=== PATIENT | female | born 1995 | race Caucasian/White ===

== ENCOUNTER → 2017-06-18 | Outpatient (CLI) | payer OTHER | LOC: M RAD 12:29 | DX: N83.201 Unspecified ovarian cyst, right side (principal) | CPT/HCPCS: 76856 ==

== ENCOUNTER → 2017-09-19 | Outpatient (REF) | payer OTHER | LOC: M LAB REF 18:37 | DX: J02.9 Acute pharyngitis, unspecified (principal) ==

== ENCOUNTER 2017-10-17 11:38 | Emergency (ER) | payer MEDICAID, OTHER ==
[2017-10-17] MEDS ORDERED: NS 1,000 ML IV ×2 (12:30)
[2017-10-17] MEDS: MORPHINE 4 MG/ML 1ML VIAL/SYRINGE (J2270) IV ×2 (12:54)
[2017-10-17] MEDS ORDERED: ISOVUE-370 76% 100ML VIAL (Q9967) As Ordered ×2 (13:16)
[2017-10-17 17:49] LABS: ALBUMIN 3.7 GM/DL (3.2-5.2); ALBUMIN/GLOBULIN RATIO 1.12 (1.00-1.93); ALKALINE PHOSPHATASE 88 U/L (45-117); ALT/SGPT 14 U/L (12-78); AMYLASE 31 U/L (25-115); ANION GAP 6 MEQ/L (8-16); AST/SGOT 15 U/L (7-37); BILIRUBIN,DIRECT 0.2 MG/DL (0.0-0.2); BILIRUBIN,TOTAL 0.6 MG/DL (0.2-1.0); BLOOD UREA NITROGEN 12 MG/DL (7-18); CALCIUM LEVEL 8.6 MG/DL (8.5-10.1); CARBON DIOXIDE LEVEL 24 MEQ/L (21-32); CHLORIDE LEVEL 110 MEQ/L (98-107); CREATININE FOR GFR 0.89 MG/DL (0.55-1.30); GLUCOSE, FASTING 86 MG/DL (70-100); LIPASE 53 U/L (73-393); POTASSIUM SERUM 3.9 MEQ/L (3.5-5.1); SODIUM LEVEL 140 MEQ/L (136-145)
[2017-10-18 03:48] LABS: BASO % 0.5 % (0.0-1.0); EOS # 0.2 10^3/uL (0.0-0.50); EOS % 2.6 % (0.0-3.0); HEMATOCRIT 38.9 % (36.0-47.0); HEMOGLOBIN 13.3 g/dl (12.0-15.5); IMMATURE GRANULOCYTE % 0.3 % (0-3.0); LYMPH # 1.2 10^3/uL (1.5-6.5); LYMPH % 19.4 % (24.0-44.0); MEAN CORPUSCULAR HEMOGLOBIN 32.4 pg (27.0-33.0); MEAN CORPUSCULAR HGB CONC 34.2 g/dl (32.0-36.5); MEAN CORPUSCULAR VOLUME 94.6 fl (80.0-96.0); MONO # 0.5 10^3/uL (0.0-0.8); MONO % 8.6 % (0.0-5.0); NEUTROPHILS # 4.2 10^3/uL (1.8-7.7); NEUTROPHILS % 68.6 % (36.0-66.0); PLATELET COUNT, AUTOMATED 270 10^3/uL (150-450); RED BLOOD COUNT 4.11 10^6/uL (4.00-5.40); RED CELL DISTRIBUTION WIDTH 12.1 % (11.5-14.5); WHITE BLOOD COUNT 6.1 10^3/uL (4.0-10.0)
== END 2017-10-17 16:47 | disposition home or self-care (01) ==
LOC: M ED 11:38
DX: S80.01XA Contusion of right knee, initial encounter (principal); S80.02XA Contusion of left knee, initial encounter; T14.8XXA Other injury of unspecified body region, initial encounter; V49.50XA Passenger injured in collision with unspecified motor vehicles in traffic accident, initial encounter; Y92.410 Unspecified street and highway as the place of occurrence of the external cause
CPT/HCPCS: J2270

== ENCOUNTER 2019-01-27 14:49 | Emergency (ER) | payer OTHER ==
[~2019-01-27] VITALS: Ht 172.7 cm; Wt 59.4 kg
[~2019-01-27 14:49] MED LIST: PREVTAB2 PO
[2019-01-27] MEDS ORDERED: ESCI10TA2 (14:55)
[2019-01-27] MEDS ORDERED: ACETAMINOPHEN 325 MG TAB PO ONE (16:30)
--- NOTE | 2019-01-27 17:49 | REP ---
Chest x-ray: Two views. History: Cough. Rule out pneumonia. Bronchitis. . Comparison study: No comparison chest x-ray. . Findings: The lungs are well inflated and free of infiltrate. The pleural angles are sharp. The heart size is normal. Pulmonary vasculature is not increased. No significant bony abnormality is seen. Nipple jewelry is noted incidentally. Impression: Negative chest x-ray. Electronically Signed by Jose Menon MD 01/27/2019 05:40 P
[2019-01-27 18:05] VITALS: BP 109/70
== END 2019-01-27 18:11 | disposition home or self-care (01) ==
LOC: M ED 14:49
DX: J06.9 Acute upper respiratory infection, unspecified (principal); J04.0 Acute laryngitis; R51 Headache; F17.210 Nicotine dependence, cigarettes, uncomplicated; F41.9 Anxiety disorder, unspecified; F32.9 Major depressive disorder, single episode, unspecified; Z79.899 Other long term (current) drug therapy

== ENCOUNTER 2019-07-28 08:17 | Emergency (ER) | payer OTHER ==
[~2019-07-28] VITALS: Ht 172.7 cm; Wt 66.5 kg
[~2019-07-28 08:17] MED LIST changes: +ESCI10TA2
[2019-07-28] MEDS ORDERED: IBUP-1114 PO (08:23)
[2019-07-28] MEDS ORDERED: NS 1,000 ML IV ONE (08:45)
[2019-07-28 09:02] LABS: BASO % 0.3 % (0.0-1.0); EOS # 0.1 10^3/uL (0.0-0.5); EOS % 1.5 % (0.0-3.0); HEMATOCRIT 38.5 % (36.0-47.0); HEMOGLOBIN 13.3 g/dl (12.0-15.5); LYMPH # 1.1 10^3/uL (1.5-5.0); LYMPH % 12.9 % (24.0-44.0); MEAN CORPUSCULAR HEMOGLOBIN 33.1 pg (27.0-33.0); MEAN CORPUSCULAR HGB CONC 34.5 g/dl (32.0-36.5); MEAN CORPUSCULAR VOLUME 95.8 fl (80.0-96.0); MONO # 0.4 10^3/uL (0.0-0.8); MONO % 4.6 % (0.0-5.0); NEUTROPHILS % 80.4 % (36.0-66.0); PLATELET COUNT, AUTOMATED 247 10^3/uL (150-450); RED BLOOD COUNT 4.02 10^6/uL (4.00-5.40); WHITE BLOOD COUNT 8.7 10^3/uL (4.0-10.0)
[2019-07-28 09:30] LABS: BILIRUBIN,DIRECT 0.2 MG/DL (0.0-0.2); BILIRUBIN,TOTAL 0.8 MG/DL (0.2-1.0); TOTAL PROTEIN 7.2 GM/DL (6.4-8.2)
[2019-07-28] MEDS ORDERED: ONDANSETRON 4MG/2ML VIAL (J2405) IV ONE (09:30)
--- NOTE | 2019-07-28 09:50 | REP ---
CT of the abdomen pelvis without IV and oral contrast for left flank pain and hematuria: Comparison is 10/17/2017 with IV contrast. There is mild left hydronephrosis/hydroureter as an interval change. No perinephric stranding. There is a 3 ml calculus in the pelvis on the left, not present previously, possibly a distal left ureteral calculus on image 123. There is a second calculus in the pelvis on the left adjacent to the left acetabulum on image 125, similar to the prior study, likely phleboliths. There is a nonobstructive 3 mm left renal calculus and a nonobstructive 3 mm right renal calculus. The visualized lung martin are unremarkable except for curvilinear parenchymal scarring in the left lower lobe, unchanged. The unenhanced hepatic parenchyma, gallbladder, pancreas, spleen, adrenals, abdominal aorta, bowel and mesentery are unremarkable. There is no ascites. Pelvis: The uterus and adnexa are unremarkable. There is no free fluid. The pelvic bowel loops are unremarkable. Impression: Mild left hydronephrosis/hydroureter. Probable 3 ml calculus in the distal left ureter. There are nonobstructive 3 mm calculi in each kidney. Consider a CT urogram with IV contrast for more assurance that the pelvic calculus is in the distal left ureter. Electronically Signed by Guanako Elder MD 07/28/2019 09:42 A
[2019-07-28] MEDS ORDERED: KETOROLAC 30 MG/ML VIAL (J1885) IV ONE (10:00)
[2019-07-28] MEDS ORDERED: FLOM0.4C39 PO (10:16)
[2019-07-28] MEDS ORDERED: ONDA4TAB6 PO (10:16)
[2019-07-28] MEDS ORDERED: NORC1TAB7 PO (10:20)
[2019-07-28 10:30] VITALS: BP 126/58
== END 2019-07-28 10:31 | disposition home or self-care (01) ==
LOC: M ED 08:17
DX: N13.39 Other hydronephrosis (principal); N13.4 Hydroureter; N20.2 Calculus of kidney with calculus of ureter; R11.2 Nausea with vomiting, unspecified; R19.7 Diarrhea, unspecified; F41.9 Anxiety disorder, unspecified; F33.9 Major depressive disorder, recurrent, unspecified; F17.200 Nicotine dependence, unspecified, uncomplicated; Z79.899 Other long term (current) drug therapy
CPT/HCPCS: 74176; 80047; 80076; 81001; 83690; 84702; 85025; 96361; 96374; 96375; 99284; J1885; J2405

== ENCOUNTER 2019-08-01 10:00 | Day surgery (SDC) | payer OTHER ==
[~2019-08-01] VITALS: Ht 172.7 cm; Wt 69.0 kg
[~2019-08-01 10:00] MED LIST changes: +FLOM0.4C39 PO; +IBUP-1114 PO; +NORC1TAB7 PO; +ONDA4TAB6 PO
[2019-08-01] MEDS ORDERED: NS 1,000 ML IV ONE (10:15)
[2019-08-01] MEDS ORDERED: KETOROLAC 30 MG/ML VIAL (J1885) IV ONE (10:30)
[2019-08-01] MEDS ORDERED: ONDANSETRON 4MG/2ML VIAL (J2405) IV ONE (10:30)
[2019-08-01 10:51] LABS: BASO % 0.4 % (0.0-1.0); EOS # 0.2 10^3/uL (0.0-0.5); EOS % 2.2 % (0.0-3.0); HEMATOCRIT 40.2 % (36.0-47.0); HEMOGLOBIN 13.8 g/dl (12.0-15.5); LYMPH # 1.3 10^3/uL (1.5-5.0); LYMPH % 17.4 % (24.0-44.0); MEAN CORPUSCULAR HEMOGLOBIN 32.9 pg (27.0-33.0); MEAN CORPUSCULAR HGB CONC 34.3 g/dl (32.0-36.5); MEAN CORPUSCULAR VOLUME 95.9 fl (80.0-96.0); MONO # 0.3 10^3/uL (0.0-0.8); MONO % 4.7 % (0.0-5.0); NEUTROPHILS # 5.4 10^3/uL (1.5-8.5); NEUTROPHILS % 74.9 % (36.0-66.0); PLATELET COUNT, AUTOMATED 260 10^3/uL (150-450); RED BLOOD COUNT 4.19 10^6/uL (4.00-5.40); WHITE BLOOD COUNT 7.2 10^3/uL (4.0-10.0)
--- NOTE | 2019-08-01 11:05 | REP ---
Supine abdomen single AP view: Comparison is the abdomen/pelvis CT dated 07/28/2019. On the comparison study there was a 3 mm right renal calculus, 3 mm left renal calculus and eighth 3 mm calcification in the pelvis on the left. None of these calcifications are identified on the current plain film study. The bowel gas pattern is normal. The skeletal structures are unremarkable. Impression: No calcifications are identified. Electronically Signed by Guanako Elder MD 08/01/2019 10:57 A
--- NOTE | 2019-08-01 11:14 | REP ---
URINARY TRACT SONOGRAPHY: HISTORY: Left renal colic. History of kidney stones. Comparison CT study, July 28, 2019. SONOGRAPHIC FINDINGS: Scanning at the level of the urinary bladder shows that it is empty. Incidental note is made of innumerable echogenic foci in the gallbladder consistent with cholelithiasis. The gallbladder is not dilated. No pericholecystic fluid is seen. Renal cortical echogenicity pattern is normal generally. There is a hyperechoic area in the lower to mid pole region of the right kidney involving the renal cortex without evidence of mass. Question pyelonephritis changes. There is no evidence of hydronephrosis on the right. There is minimal separation of central renal sinus echoes on the left, improved from the prior CT study, July 28, 2019. There is a 3 mm echogenic focus in the left mid kidney consistent with a calculus. Left renal dimensions are 13.8 x 5.6 x 6.2 cm. The right kidney measures 12.3 x 4.4 x 3.7 cm. IMPRESSION: Improved hydronephrosis on the left. 3 mm echogenic focus in the left mid kidney may be a small intrarenal calculus. There is a region of the right kidney mid to lower pole with hyperechoic renal parenchyma, question pyelonephritis changes. Etiology uncertain. No abnormal fluid collection. No hydronephrosis noted on the right. Cholelithiasis. Electronically Signed by Jose Menon MD 08/01/2019 03:49 P
[2019-08-01 11:17] LABS: BLOOD UREA NITROGEN 9 MG/DL (7-18); CALCIUM LEVEL 9.4 MG/DL (8.5-10.1); CARBON DIOXIDE LEVEL 30 MEQ/L (21-32); CHLORIDE LEVEL 107 MEQ/L (98-107); CREATININE FOR GFR 0.73 MG/DL (0.55-1.30); GLOMERULAR FILTRATION RATE > 60.0 (>60); GLUCOSE, FASTING 93 MG/DL (70-100); POTASSIUM SERUM 3.5 MEQ/L (3.5-5.1); SODIUM LEVEL 140 MEQ/L (136-145)
[2019-08-01] MEDS ORDERED: MORPHINE 4 MG/ML 1ML VIAL/SYRINGE (J2270) IV ONE (11:45)
[2019-08-01] MEDS ORDERED: FLOM0.4C39 PO (12:55)
[2019-08-01] MEDS ORDERED: NORC1TAB7 PO (12:55)
[2019-08-01] MEDS ORDERED: ONDA4TAB6 PO (12:55)
[2019-08-01] MEDS ORDERED: propofoL 200 MG/20 ML VIAL As Ordered ONE (14:35)
[2019-08-01] MEDS ORDERED: fentaNYL 100 MCG/2 ML INJECTION (J3010) As Ordered ONE (14:36)
[2019-08-01] MEDS ORDERED: MIDAZOLAM INJ 2 MG/2 ML VIAL (J2250) As Ordered ONE (14:36)
[2019-08-01] MEDS ORDERED: LIDOCAINE 2% INJ 100 MG/5 ML SDV (FOR ANES.) As Ordered ONE (14:36)
[2019-08-01] MEDS ORDERED: ceFAZolin 2 GM/D5W 50 ML IV BAG (J0690 PER 500MG) As Ordered ONE (14:42)
[2019-08-01] MEDS ORDERED: CONRAY-60 60% 50ML VIAL (Q9961) As Ordered ONE (14:53)
[2019-08-01] MEDS ORDERED: dexameTHASONE 4 MG/ML 1ML VIAL (J1100) As Ordered ONE (15:15)
[2019-08-01] MEDS ORDERED: ONDANSETRON 4MG/2ML VIAL (J2405) As Ordered ONE (15:15)
[2019-08-01] MEDS ORDERED: KETOROLAC 60 MG/2 ML VIAL (J1885) As Ordered ONE (15:15)
[2019-08-01] MEDS ORDERED: ePHEDrine SULFATE 25 MG/5 ML(5MG/ML) SYRINGE As Ordered ONE (15:26)
[2019-08-01] MEDS ORDERED: MEPERIDINE INJ 25 MG/ML VIAL (J2175) As Ordered ONE (16:01)
--- NOTE | 2019-08-01 16:09 | REP ---
Retrograde pyelogram: Single view. History: Left ureteroscopy with laser lithotripsy stent placement. 0.05 seconds of fluoroscopy is reported. A single last image hold fluoroscopically obtained spot radiograph of the abdomen documents left ureteral stent placement. Electronically Signed by Jose Menon MD 08/01/2019 03:59 P
[2019-08-01] MEDS ORDERED: oxyCODONE 5MG TAB PO PRN (16:15)
[2019-08-01] MEDS ORDERED: KETOROLAC 30 MG/ML VIAL (J1885) IV PRN (16:15)
[2019-08-01] MEDS ORDERED: LR 1,000 ML IV SCH (16:15)
[2019-08-01] MEDS ORDERED: HYDROMORPHONE HCL 0.5 MG/ 0.5 ML SYRINGE (J1170 PER 1) IV PRN (16:15)
[2019-08-01] MEDS ORDERED: fentaNYL 100 MCG/2 ML INJECTION (J3010) IV PRN (16:15)
[2019-08-01] MEDS: MEPERIDINE INJ 25 MG/ML VIAL (J2175) IV PRN ×2 (16:23→16:30)
[2019-08-01] MEDS: ONDANSETRON 4MG/2ML VIAL (J2405) IV PRN (16:30)
[2019-08-01 17:00] VITALS: BP 120/83
--- NOTE | 2019-08-02 08:42 | CR ---
DATE OF CONSULTATION: 08/01/2019 REASON FOR CONSULTATION: Obstructing left ureteral stone. HISTORY OF PRESENT ILLNESS: The patient is a 24-year-old female who comes into the emergency room for the second time this week with severe left lower quadrant pain and pressure. A CT scan had been done on 07/28/2019 which showed a 3 mm distal left ureteral stone with associated left hydroureteronephrosis. She also had a 3 mm stone in each kidney. She did have a history of needing a lithotripsy in the past. She comes back in today with continued pain. She has had nausea, vomiting, and chills on and off. She requested the stone be removed. The patient has passed at least six stones and required laser lithotripsy about 5 years ago at [facility]. She denies any gross hematuria or problems with recurrent urinary tract infections. She normally does not have any irritative or obstructive voiding symptoms except for when she has the stone where she feels mostly pressure and a feeling like she needs to void constantly. PAST MEDICAL HISTORY: Denies. PAST SURGICAL HISTORY: Laser lithotripsy and stent placement 5 years ago. MEDICATIONS: Flomax was started several days ago for the stone but otherwise she is not on any medications. ALLERGIES: No known drug allergies. FAMILY HISTORY: Noncontributory. REVIEW OF SYSTEMS: 12 system review was done and was also essentially negative. PHYSICAL EXAMINATION: This is a well-developed, well-nourished female in no apparent respiratory distress, alert and oriented times three. Her blood pressure was 129/78. Her pulse is 100 and her respiratory rate is 16. Her head was normocephalic, atraumatic. Her eyes were pupils equal, round, and reactive to light and accommodation. Neck was supple. Her lungs were clear to auscultation and percussion and her heart had a regular rate and rhythm. She did have some left CVA tenderness. Her abdomen and also had some left lower quadrant tenderness. Her extremities showed no cyanosis, clubbing or edema. LABORATORY DATA White blood count was 7.2. Hemoglobin and hematocrit 13.8 and 40.2. Her creatinine was 0.73 and a calcium level of 9.4. A microscopic urinalysis showed 4 white blood cells and 1 red blood cell and the last urinalysis did show too numerous to count red blood cells and 9 white blood cells. There has been no recent urine culture sent. CT scan of the abdomen and pelvis was done 07/28/2019 which showed a 3 mm distal left ureteral stone and at least one 3 mm stone in each kidney. She had a renal ultrasound done in the emergency room today and this did still show hydronephrosis, although it was improved from previously. DISCUSSION: I discussed these findings at length with the patient and her mother in the hospital today. The patient is extremely uncomfortable and has already waited 5 days and would like to have the stone removed. We discussed exactly how the procedure is done and what to expect both pre and post procedurally. We discussed the major risks of the procedure, which included but was not limited to the rest of general anesthesia, reactions to medication, bleeding, infection, ureteral injury, and inability to remove the stone. She had a stent replaced last time and removed the stent by that and she did want this done again. She did not find the string bothersome. Informed consent was obtained. IMPRESSION: 1. 3 mm distal left ureteral stone but with a second emergency room visit and the patient has not passed the stone and 5 days and would like to proceed with surgical management. 2. History of bilateral nephrolithiasis, still with at least one 3 mm stone in each kidney and the patient has passed at least six stones in the past. PLAN: Bring the patient to the operating room as soon as possible for cystoscopy, left ureteroscopy, laser lithotripsy and/or stone basketing and left ureteral stent placement. The patient will require further workup in the future for stones.
--- NOTE | 2019-08-04 10:48 | RO ---
DATE OF PROCEDURE: 08/01/2019 PREOPERATIVE DIAGNOSIS: 3 mm distal left ureteral stone. POSTOPERATIVE DIAGNOSIS: 3 mm distal left ureteral stone. PROCEDURE: Cystoscopy, left ureteroscopy, left stone basketing and left ureteral stent placement. SURGEON: Dr. Silvia Ac ANESTHESIA: General. MEDICATIONS: Ancef 2 grams preoperatively. DRAINS: 6-Bulgarian universal double-J ureteral stent. SPECIMENS: Stone for analysis. HISTORY OF PRESENT ILLNESS: The patient is a 24-year-old female with a 5-day history of severe left lower quadrant pain, nausea, vomiting, and chills. A CT scan done in the emergency room (ER) on 07/28/2019 showed a 3 mm distal left ureteral stone and two nonobstructing stones in the kidneys. She has required laser lithotripsy for a stone in the past and has passed at least six other stones. At this point, she was requesting surgical management since she was still in very significant pain for 5 days. After discussing all different options, alternatives, risks, and benefits it was decided to bring her to the operating room. Informed consent was obtained in both verbal and written form. PROCEDURE: The patient was brought into the operating room. Sequential compression devices and thromboembolic deterrent stockings (TEDS) were in place. General anesthesia was induced. She was placed in the lithotomy position and prepped and draped in the usual fashion. Next a 21-Bulgarian cystoscope was inserted. The urethra was open without any evidence of lesions or strictures. Upon entering the bladder both ureteral orifices were seen. There was no evidence of stones, erythematous patches, lesions or other significant abnormalities. At this point a wire was placed into the left ureteral orifice up to the kidney and this was left as a safety wire. A second wire was then placed and a rigid ureteroscope was passed over this. There were two distal stones seen and these were both grabbed with a stone basket and removed. I then did ureteroscopy up into the kidney and the rest of the ureter looked clear and normal. At this point a 6-Bulgarian universal stent was placed and there was an excellent curl seen by fluoroscopy up in the kidney and down in the bladder and the string was brought out and taped to her inner thigh. She had had a dangler in the past and requested that this time also. The patient tolerated the procedure well and was returned to the recovery room in stable condition. She will be scheduled in our office in 1 week to have the stent removed and at that point stone analysis will be checked and she should have a 24 hour urine in the future.
== END 2019-08-01 17:10 | disposition home or self-care (01) ==
LOC: M ED 10:00 → M SDC 13:03 → ENRESERVDT 13:58 → ENRESERVTM 13:58 → M SDC 17:10
PROVIDERS: ATTEND Specialist
DX: N20.1 Calculus of ureter (principal); N20.0 Calculus of kidney; R11.10 Vomiting, unspecified; Z87.442 Personal history of urinary calculi
CPT/HCPCS: 52332; 74018; 74420; 76775; 80048; 81001; 82365; 84702; 85025; 88300; 96361; 96374; 96375; 99284; C1769; C2617; J0690; J1100; J1885; J2175; J2250; J2270; J2405; J3010

== ENCOUNTER → 2019-10-23 | Outpatient (REF) | payer OTHER ==
[2019-10-23 15:46] LABS: HEMATOCRIT 38.1 % (36.0-47.0); HEMOGLOBIN 13.1 g/dl (12.0-15.5); MEAN CORPUSCULAR HEMOGLOBIN 32.7 pg (27.0-33.0); MEAN CORPUSCULAR HGB CONC 34.4 g/dl (32.0-36.5); PLATELET COUNT, AUTOMATED 266 10^3/uL (150-450); RED BLOOD COUNT 4.01 10^6/uL (4.00-5.40); WHITE BLOOD COUNT 11.1 10^3/uL (4.0-10.0)
[2019-10-23 20:41] LABS: CHLAMYDIA DNA AMPLIFICATION NEGATIVE (NEGATIVE); GC DNA AMPLIFICATION NEGATIVE (NEGATIVE)
[2019-10-24 09:50] LABS: HEPATITIS C VIRUS ABY INDEX 0.3 INDEX (<0.8); HIV 1&2 SCREEN CENTAUR NEGATIVE (NEGATIVE)
== END ==
LOC: M PLALAB 13:46
PROVIDERS: ATTEND Advanced Practice Midwife
DX: Z34.01 Encounter for supervision of normal first pregnancy, first trimester (principal)

== ENCOUNTER → 2019-11-20 | Outpatient (REF) | payer OTHER | LOC: M SFHCWAGY 09:06 | PROVIDERS: ATTEND Advanced Practice Midwife | DX: Z12.4 Encounter for screening for malignant neoplasm of cervix (principal) ==

== ENCOUNTER → 2019-12-24 | Outpatient (CLI) | payer OTHER ==
--- NOTE | 2020-02-10 09:23 | REP ---
OBSTETRIC SONOGRAPHY HISTORY: Supervision of . This report was delayed due to a protracted network disruption at this facility. SONOGRAPHIC FINDINGS: Scanning through the gravid uterus demonstrates a single living intrauterine gestation in a transverse, head to the maternal left lie. Placenta is anterior grade 0 without evidence of previa or abruption. Closed cervical length is 3.8 cm viewed transabdominally. heart rate is recorded at 138 beats per minute. Right ventricular outflow tract view could not be achieved today. Left ventricular outflow tract and four chamber heart views were visualized and are felt to be unremarkable. The following additional anatomic structures are seen and are unremarkable: cranium and intracranial anatomy, spine, left-sided stomach, kidneys and urinary bladder, three-vessel cord, abdominal wall cord insertion, upper and lower extremities, face and lips. BIOMETRY CHART: BPD 40 mm 18 weeks 2 days Head Circumference 144 mm 17 weeks 5 days Abdominal Circumference 121 mm 17 weeks 6 days Femur Length 24 mm 17 weeks 4 days Humeral Length 24 mm 17 weeks 4 days Cerebellum Diameter 16 mm 17 weeks 6 days Estimated Weight 206 g 21st percentile IMPRESSION: Viable single intrauterine gestation at 17 weeks 6 days by todays composite criteria. Estimated date of delivery (LAN) 05/25/2020. anatomic survey is felt be complete except for right ventricular outflow tract view, which was less than optimally seen. MTDD
== END ==
LOC: M WHC 17:20
PROVIDERS: ATTEND Advanced Practice Midwife
DX: Z34.82 Encounter for supervision of other normal pregnancy, second trimester (principal); Z3A.17 17 weeks gestation of pregnancy

== ENCOUNTER → 2020-01-27 | Outpatient (CLI) | payer OTHER ==
--- NOTE | 2020-02-17 07:06 | REP ---
FOLLOW-UP OBSTETRICAL ULTRASOUND COMPARISON: 12/24/2019. CLINICAL: Follow-up anatomical assessment. TECHNIQUE: Transabdominal obstetrical ultrasound with color Doppler evaluation. FINDINGS: Ultrasound examination demonstrates a single live intrauterine in transverse lie with head to maternal right. Placenta noted anteriorly and grade 0 without placenta previa or abruption. Amniotic fluid volume is normal. Cervix measures 3.6 cm in length and appears closed. heart rate 144 beats per minute. Gestational age by current measurements 23 weeks 0 days. Estimated weight 546 grams (38th percentile). Anatomical assessment demonstrates normal four chamber heart and cardiac ventricular outflow tracts along with normal stomach, kidneys, and bladder. IMPRESSION: * Single live intrauterine in transverse lie demonstrating appropriate estimated weight and growth. * In conjunction with prior examination, anatomical assessment is complete and normal. MTDD
== END ==
LOC: M WHC 13:52
PROVIDERS: ATTEND Specialist
DX: Z34.82 Encounter for supervision of other normal pregnancy, second trimester (principal)

== ENCOUNTER → 2020-02-11 | Outpatient (REF) | payer OTHER | LOC: M SFHCWAGY 13:44 | PROVIDERS: ATTEND Advanced Practice Midwife | DX: Z34.82 Encounter for supervision of other normal pregnancy, second trimester (principal) ==

== ENCOUNTER → 2020-02-26 | Outpatient (CLI) | payer OTHER ==
[2020-02-26 13:41] LABS: BASO % 0.3 % (0.0-1.0); EOS # 0.2 10^3/uL (0.0-0.5); EOS % 1.5 % (0.0-3.0); HEMATOCRIT 32.3 % (36.0-47.0); HEMOGLOBIN 11.1 g/dl (12.0-15.5); LYMPH # 1.5 10^3/uL (1.5-5.0); LYMPH % 13.2 % (24.0-44.0); MEAN CORPUSCULAR HEMOGLOBIN 33.3 pg (27.0-33.0); MEAN CORPUSCULAR HGB CONC 34.4 g/dl (32.0-36.5); MONO # 0.7 10^3/uL (0.0-0.8); MONO % 5.9 % (0.0-5.0); NEUTROPHILS # 8.8 10^3/uL (1.5-8.5); NEUTROPHILS % 78.6 % (36.0-66.0); PLATELET COUNT, AUTOMATED 232 10^3/uL (150-450); RED BLOOD COUNT 3.33 10^6/uL (4.00-5.40); WHITE BLOOD COUNT 11.2 10^3/uL (4.0-10.0)
== END ==
LOC: M LAB 11:42
PROVIDERS: ATTEND Advanced Practice Midwife
DX: Z34.82 Encounter for supervision of other normal pregnancy, second trimester (principal); Z3A.00 Weeks of gestation of pregnancy not specified

== ENCOUNTER 2020-04-16 18:11 | Outpatient (CLI) | payer OTHER ==
[~2020-04-16] VITALS: Ht 170.2 cm; Wt 71.8 kg
[2020-04-16 18:28] VITALS: BP 115/64
[2020-04-16] MEDS ORDERED: MULTTAB20 PO (18:31)
[2020-04-16] MEDS ORDERED: TUMS750C5 PO (18:31)
[2020-04-16 19:14] LABS: APPEARANCE, URINE HAZY (CLEAR); BACTERIA, URINE AUTO NEGATIVE (NEGATIVE); BILIRUBIN, URINE AUTO NEGATIVE (NEGATIVE); BLOOD, URINE BLOOD NEGATIVE (NEGATIVE); COLOR, URINE YELLOW (YELLOW); GLUCOSE, URINE (UA) AUTO NEGATIVE (NEGATIVE); KETONE, URINE AUTO NEGATIVE (NEGATIVE); LEUKOCYTE ESTERASE, URINE AUTO TRACE (NEGATIVE); NITRITE, URINE AUTO NEGATIVE (NEGATIVE); PROTEIN, URINE AUTO NEGATIVE (NEGATIVE); RBC, URINE AUTO 0 /HPF (0-3); SPECIFIC GRAVITY URINE AUTO 1.006 (1.002-1.035); SQUAMOUS EPITHELIAL CELL UR AU 6 /HPF (0-6); UROBILINOGEN, URINE AUTO 0.2 mg/dL (0.0-2.0); WBC, URINE AUTO 4 /HPF (0-3)
--- NOTE | 2020-04-16 19:41 | IPNPDOC ---
Text Note Date of Service The patient was seen on 04/16/20. NOTE Outpatient 24yo LAN 05/25/2020. Presents @ 34w3d with complaints of sporadic lower abdominal cramping that radiates up the sides of her abdomen. Also states she had light spotting on wipe x 1. Reports fetus is very active. States she had intercourse yesterday. No apparent distress Abdomen soft, gravid appropriate for gestational age. Vertex presentation Cat I tracing, fetus active No UC noted on monitor or palpable Spec exam no active bleeding. Scant white creamy discharge. Neg nitrazine, neg fern. Cervix visually LTC. GBS obtained. SVE presenting part OOP, LTC. UA inconclusive for UTI. Culture sent. Pt reports feeling improved. Reassured Discharged home with instructions. Warnings reviewed. Keep appt next week. VS,Fishbone, I+O VS, Fishbone, I+O Vital Signs Date Time Temp Pulse Resp B/P (MAP) Pulse Ox O2 Delivery O2 Flow Rate FiO2 04/16/20 18:28 98.5 79 16 115/64 (81) Enedelia Montiel CNM Apr 16, 2020 19:41
== END 2020-04-16 19:40 | disposition home or self-care (01) ==
LOC: M LDO 18:11
PROVIDERS: ATTEND Advanced Practice Midwife
DX: O26.893 Other specified pregnancy related conditions, third trimester (principal); R10.30 Lower abdominal pain, unspecified; Z3A.34 34 weeks gestation of pregnancy

== ENCOUNTER → 2020-04-27 | Outpatient (CLI) | payer OTHER ==
[~2020-04-27] MED LIST changes: +MULTTAB20 PO; +TUMS750C5 PO
== END ==
LOC: M WHC 14:13
PROVIDERS: ATTEND Obstetrics & Gynecology
DX: Z34.93 Encounter for supervision of normal pregnancy, unspecified, third trimester (principal); Z3A.36 36 weeks gestation of pregnancy; Z53.9 Procedure and treatment not carried out, unspecified reason

== ENCOUNTER → 2020-04-30 | Outpatient (CLI) | payer OTHER ==
--- NOTE | 2020-04-30 13:17 | REP ---
INDICATION: SIZA LESS THAN DATES,GROWTH. COMPARISON: ultrasound studies dated 12/24/2019 and 01/27/2020. TECHNIQUE: Multiple ultrasound images of the gravid uterus. FINDINGS: There is a single intrauterine gestation in a cephalic presentation. The placenta is anterior, grade 3. There is no previa. The placental umbilical cord insertion is identified and is located centrally on the placenta. The local cord insertion is unremarkable. There is a three-vessel cord. The cervix measures 3.2 cm in length. heart rate is 149 beats per minute. The amniotic fluid volume subjectively is normal. The amniotic fluid index is 13.6 (7.6-24.7). The composite gestational age by ultrasound today is 35 weeks 1 day. The LAN is 06/03/2020. Gestational age by LMP is 36 weeks 3 days with an LAN of 05/25/2020. weight by ultrasound today is 2579 g/5 lb-10 oz. This is the 20th percentile for 36 weeks 3 days. IMPRESSION: size and dates as discussed above. <Electronically signed by Guanako Elder > 04/30/20 [id number]
== END ==
LOC: M WHC 09:59
PROVIDERS: ATTEND Obstetrics & Gynecology
DX: Z34.93 Encounter for supervision of normal pregnancy, unspecified, third trimester (principal); Z3A.36 36 weeks gestation of pregnancy

== ENCOUNTER → 2020-05-25 | Outpatient (REF) | payer OTHER | LOC: M SFHCWAGY 10:22 | PROVIDERS: ATTEND Advanced Practice Midwife | DX: Z3A.40 40 weeks gestation of pregnancy (principal) ==

== ENCOUNTER 2020-05-29 19:20 | Inpatient (IN) | payer OTHER ==
[~2020-05-29] VITALS: Ht 170.2 cm; Wt 74.6 kg
[~2020-05-29 19:20] MED LIST changes: +ESCI10TA16; -ESCI10TA2
[2020-05-29 19:40] VITALS: BP 130/80
[2020-05-29 21:09] LABS: HEMATOCRIT 31.5 % (36.0-47.0); HEMOGLOBIN 10.9 g/dl (12.0-15.5); MEAN CORPUSCULAR HGB CONC 34.6 g/dl (32.0-36.5); MEAN CORPUSCULAR VOLUME 92.4 fl (80.0-96.0); PLATELET COUNT, AUTOMATED 249 10^3/uL (150-450); RED BLOOD COUNT 3.41 10^6/uL (4.00-5.40); WHITE BLOOD COUNT 11.8 10^3/uL (4.0-10.0)
[2020-05-29] MEDS ORDERED: LACTATED RINGER'S 1000 ML IV STA (21:23)
[2020-05-29] MEDS ORDERED: miSOPROStol 50MCG 1/2 TABLET PV ONE (21:30)
--- NOTE | 2020-05-29 21:57 | HPEPDOC ---
Obstetrical History & Physical General Date of Admission May 29, 2020 at 19:20 History of Present Illness Lesli is a 24yo with SIUP at 40w4d by LMP c/w 9wk u/s who called me a few hours ago noting decreased movement and she was tearful. She stated she did her kick counts and did not get 10 movements in 2 hours. I instructed her to come in for likely IOL since she is past her due date and had planned IOL on Sunday anyhow. She is now feeling some more movement, but still not as much as normal. No regular ctx, no LOF, no vaginal bleeding. No fevers/chills/cough or any other sx. Chief Complaint: Induction of labor (for DFM) Information Provided By: Patient Care Care: Good Care Dating Final EDC: May 25, 2020 Final EDC by: LMP, 1st trimester (US) Antepartum Course Diagnos(e)s Benign course Past Medical History Past Obstetrical History : Past Obstetrical History: Primgravida (hx of 1 early sab and 1 ETOP) ACCESS CONSULTANT History: No pertinent history Past Medical History Medical History Hx of nephrolithiasis treated with lithotripsy, anxiety/depression (stopped meds 1 year ago, was on zoloft/alprazolam) Surgical History: Other (lithotripsy) Family History Significant Family History: No pertinent family hx Social History Marital Status: Single Family situation: Spouse/partner home Psychosocial History: Anxiety, Depression * Smoker: former Smoker Alcohol: Denies Drugs: denies (prior marijuana use) Imunizations Tdap status: current Influenza Status: current Allergies Coded Allergies: No Known Allergies (Unverified , 10/17/17) Medications Scheduled No122/Iron/Folic Acid ( Multi Tablet) 1 Each Tablet, 1 TAB PO DAILY Scheduled PRN Calcium Carbonate (Tums) 300 Mg Tab.chew, 750 MG PO Q6HP PRN for HEARTBURN Physical Examination Physical Examination GENERAL: Alert and oriented times three. ABDOMEN: Gravid and non-tender to touch. FETUS: Is vertex (VTX) by sterile vaginal examination (SVE) EXTREMITIES: No edema of BLE Vital Signs/I&O Vital Signs Date Time Temp Pulse Resp B/P (MAP) Pulse Ox O2 Delivery O2 Flow Rate FiO2 05/29/20 19:40 98.2 88 18 130/80 (97) Laboratory Data 24H LABS Laboratory Tests 2 05/29/20 19:29: Serology Scanned Report Hepatitis B Testing 05/29/20 19:55: Nucleated Red Blood Cells % (auto) 0.0 CBC/BMP Laboratory Tests 05/29/20 19:55 Pertinent Laboratoy Data Blood Type: O+ RBC Antibody Screen: Negative HIV: Negative Hepatitis B: Negative Hepatitis C: Negative Rapid Plasma Reagin: Nonreactive Rubella: Immune Chlamydia/Gonorrhea: Negative Group B Streptococcus: Negative Glucose Tolerance Test: 71 Anatomy Ultrasound Ultrasound Date: Jan 27, 2020 Placenta Location: Anterior Normal Anatomy: Yes Placenta Previa: No Other Ultrasounds 04/30/20 GS for s<d: 20%ile Steroid Therapy Steroid Therapy: No Vaginal Examination Dilation: 1cm Effacement: 50% Station: -2 Cervical Consistency: Soft Cervical Position: Middle Presentation: Cephalic presentation Assessment Heart Rate (FHR): 125 Variability: Moderate Accelerations: Positive Decelerations: None Tocometer Contractions: Yes Frequency: irregular Assessment/Plan Assessment Lesli is a 24yo with SIUP at 40w4d by LMP c/w 9wk u/s admitted for IOL for DFM at term. Cat I FHRT, irregular ctx. Vitals wnl, benign exam. SCE 1/50/- 2, soft. Cephalic. Cervical pelayo bulb placed with 40cc NS and 50mcg PV cytotec. Will plan to re-dose cytotec PO q4hr. GBS negative. Plan Admit and orient. Chemical Preparer and consent. Diet: regular overnight, clear liquids starting in the morning Group B Streptococcus (GBS) negative Labs and intravenous (IV) per unit protocol. Counseled on cytotec, pelayo bulb, Pitocin and induction of labor (IOL). Lactated Ringers (LR): Bolus 800 mL, then at 125 mL/hr. Anticipate normal spontaneous delivery () Candidate for epidural in active labor if desired, IV stadol/phenergan in latent labor if desired MD Hunter Herrera Katrina D MD May 29, 2020 21:54
[2020-05-29] MEDS ORDERED: PROMETHAZINE INJ 25 MG/ML VIAL (J2550) IV PRN (22:00)
[2020-05-29] MEDS ORDERED: BUTORPHANOL 2 MG/ML INJ (J0595) IV PRN (22:00)
[2020-05-30] VITALS (27 sets, daily range): BP systolic 98–127; BP diastolic 55–77
[2020-05-30] MEDS: LR 1,000 ML IV SCH ×2 (00:18→05:23)
[2020-05-30] MEDS: miSOPROStol 25MCG 1/4 TABLET PO SCH ×2 (02:00→06:00)
[2020-05-30] MEDS ORDERED: FENTANYL 2MCG/ML ROPIVACAINE 0.2% IN 0.9% NACL 100ML IVBAG As Ordered ONE (03:08)
[2020-05-30] MEDS ORDERED: NALOXONE INJ 0.4MG/1ML VIAL (J2310 PER 1MG) IV PRN (05:00)
[2020-05-30] MEDS ORDERED: ONDANSETRON 4MG/2ML VIAL IV PRN (05:00)
[2020-05-30] MEDS ORDERED: ePHEDrine SULFATE 25 MG/5 ML(5MG/ML) SYRINGE IV PRN (05:00)
[2020-05-30] MEDS ORDERED: LACTATED RINGER'S 1000 ML IV PRN (05:00)
[2020-05-30] MEDS ORDERED: REFRIGERATOR IV KEYS XX PRN (05:00)
[2020-05-30] MEDS ORDERED: EPIDURAL/PCA KEYS XX PRN (05:00)
[2020-05-30] MEDS ORDERED: FENTANYL/ROPIVACAINE/NACL BAG 100 ML EPIDURAL SCH (05:00)
[2020-05-30] MEDS ORDERED: diphenhydrAMINE 50MG/ML VIAL (J1200) IV PRN (05:00)
[2020-05-30] MEDS ORDERED: EPIDURAL COMMENT XX SCH (05:00)
[2020-05-30] MEDS ORDERED: OXYTOCIN 30 UNITS IN 0.9% NaCl 500ML IV BAG (J2590) As Ordered ONE (06:46)
[2020-05-30] MEDS ORDERED: BENZOCAINE 20% HEMORRHOIDAL OINTMENT 28GM TUBE TOP PRN (07:30)
[2020-05-30] MEDS ORDERED: DOCUSATE SODIUM 100MG CAPSULE PO PRN (07:30)
[2020-05-30] MEDS ORDERED: ACETAMINOPHEN TAB 650MG DOSE (2X325MG) PO PRN (07:30)
[2020-05-30] MEDS ORDERED: OXYTOCIN DRIP 30 UNITS in IV 1 EA IV SCH (07:30)
[2020-05-30] MEDS ORDERED: MEASLES,MUMPS,RUBELLA VACCINE INJ (MMR-II) (90707) SC SCH (07:30)
[2020-05-30] MEDS ORDERED: IBUPROFEN 600MG TAB PO PRN (07:30)
[2020-05-30] MEDS ORDERED: IBUPROFEN 800 MG TAB PO PRN (07:30)
[2020-05-30] MEDS ORDERED: ACETAMINOPHEN 500 MG TAB PO PRN (07:30)
[2020-05-30] MEDS ORDERED: RHOGAM 300 MCG (1500 IU) INJ (J2790) IM SCH (07:30)
--- NOTE | 2020-05-30 07:32 | DNPDOC ---
[facility] Delivery Note Delivery Note DATE OF DELIVERY: 05/30/2020 PREDELIVERY DIAGNOSIS: 40w5d gestation, IOL for DFM POST DELIVERY DIAGNOSIS: Delivered. PROCEDURE: Spontaneous vaginal delivery NEW CLIENT BANKING SERVICES CLERK: Dr. Susu Harrison MD ANESTHESIA: epidural ESTIMATED BLOOD LOSS: 200 mL. FINDINGS: 7 pound 2 ounce (3240g) female , Score 8/9 DELIVERY SUMMARY: Lesli is a 24yo s/p uncomplicated after undergoing IOL for DFM at 40w5d, delivering at 0657 on 05/30/20. She had IOL started with cervical pelayo bulb and 50mcg PV cytotec and required no further augmentation beyond that, p rogressing on her own. She received an epidural. Had SROM, clear. At C/C/+2, she began pushing and within just a few sets of pushes, 's head delivered OA, restituted FLACA. Right anterior shoulder easily delivered followed by posterior shoulder and corpus. Infant vigorous, apgars 8/9, spontaneous cry noted and placed on maternal abdomen. Nose and mouth suctioned with bulb suction. After approximately 2 minutes, cord was clamped x2 and cut by FOB. Cord blood obtained for MBT O pos. With uterine massage and traction on the cord, placenta delivered spontaneously and intact with 3 vessel centrally inserted cord. IV pitocin bolused per protocol. Fundus firm at u-2cm with hemostasis noted. Inspection of perineum and vagina revealed a superficial left labial laceration repaired with 3-0 vicryl in routine fashion with complete reapproximation and hemostasis. All counts correct x2. Mom and were doing well when I left the room. MD Hunter Herrera Katrina D MD May 30, 2020 07:32
[2020-05-30] MEDS: PRENATAL VITAMINS CHEWABLE TABLET PO SCH (08:18)
[2020-05-30] MEDS ORDERED: SLF 3 ML SYR IV PRN (08:45)
[2020-05-30] MEDS: SLF 3 ML SYR IV SCH (21:53)
[2020-05-31] MEDS: SLF 3 ML SYR IV SCH (06:05)
[2020-05-31 06:19] VITALS: BP 119/66
[2020-05-31 08:00] VITALS: BP 119/66
[2020-05-31] MEDS: PRENATAL VITAMINS CHEWABLE TABLET PO SCH (08:18)
--- NOTE | 2020-05-31 08:42 | IPNPDOC ---
Progress Note Date of Service: May 31, 2020 Day#: 1 Progress Note PPD 1 SUBJECT: Lesli is a 24yo s/p uncomplicated after undergoing IOL for DFM at 40w5d, delivering at 0657 on 05/30/20, doing well day #1. She has been ambulating, voiding spontaneously without issue and tolerating regular diet. Bottle feeding per preference. Reports lochia is like a normal period. No f/c/n/v/CP/SOB/cough. OBJECTIVE: VITAL SIGNS: Within normal limits, afebrile. Alert and oriented times three. Abdomen: Fundus firm at U-2. Soft, NTTP. Extremities: no pain with palpation of calves ASSESSMENT: Lesli is a 24yo s/p uncomplicated after undergoing IOL for DFM at 40w5d, delivering at 0657 on 05/30/20, doing well day #1. Vitals within normal limits, afebrile, hemodynamically stable with no evidence of infection. PLAN: 1. Routine care 2. Tylenol and Motrin for pain. 3. Encourage hydration and ambulation. 4. Plans for Mirena IUD 5. Routine PP visit in 6 weeks in clinic. 6. Regular diet 7. Discharge home tomorrow if meeting all criteria Susu Harrison MD VS, I&O, 24H, Fishbone Vital Signs/I&O Vital Signs Date Time Temp Pulse Resp B/P (MAP) Pulse Ox O2 Delivery O2 Flow Rate FiO2 05/31/20 08:00 98.6 64 18 119/66 98 Room Air I&O- Last 24 Hours up to 6 AM 05/31/20 06:00 Intake Total 2600 ml Output Total 600 ml Balance 2000 ml Susu Harrison MD May 31, 2020 08:42
[2020-05-31 17:40] VITALS: BP 119/67
[2020-06-01 06:00] VITALS: BP 110/59
--- NOTE | 2020-06-01 07:39 | DS.PDOC ---
Discharge Summary General Date of Admission May 29, 2020 at 19:20 Date of Discharge 06/01/2020 Discharge Summary PROCEDURES PERFORMED DURING STAY: . ADMITTING DIAGNOSES: 1. IOL for post dates at 40.4 and decreased movement. DISCHARGE DIAGNOSES: 1. Day #2. COMPLICATIONS/CHIEF COMPLAINT: Induction. HISTORY OF PRESENT ILLNESS: Lesli is a G3 now P1021 status post Day #2. Tolerating regular diet well, voiding without difficulty, bowel movement x1 without issue. Ambulating around the room without difficulty. Reports lochia like a normal period. Pain controlled with non-pharmacologic methods. Denies SOB, chest pain, epigastric pain, visual changes, headache. Formula feeding infant. Planning on having a Mirena IUD placed after follow up, declined Depo today. Desires discharge home today. HOSPITAL COURSE: Uncomplicated. DISCHARGE MEDICATIONS: Please see below. ALLERGIES: Please see below. PHYSICAL EXAMINATION ON DISCHARGE: VITAL SIGNS: Please see below. GENERAL: Alert and oriented x3 HEENT: Normal on inspection. NECK: Supple CARDIOVASCULAR EXAMINATION: Regular rate and rhythm, no murmurs appreciated. RESPIRATORY EXAMINATION: Respirations regular, no accessory muscle use. Lungs clear bilaterally throughout. ABDOMINAL EXAMINATION: Soft, non-tender to palpation. Fundus firm, midline at U-2. EXTREMITIES: No edema. No calf tenderness. DTRs +2, negative clonus. SKIN: Warm, dry, intact, appropriate color for race. NEUROLOGICAL EXAMINATION: Grossly intact. PSYCHIATRIC EXAMINATION: Denies symptoms of depression. LABORATORY DATA: Please see below. PROGNOSIS: Good. ACTIVITY: As tolerated. DIET: Regular DISCHARGE PLAN: Home with infant DISPOSITION: Stable. DISCHARGE INSTRUCTIONS: 1. Nothing in the vagina for 6weeks. 2. Tylenol and Motrin as needed for pain. 3. Reviewed warning signs to report including signs for mastitis, endometritis, preeclampsia, DVT/PE, and depression. ITEMS TO FOLLOWUP ON ON OUTPATIENT: 1. 6 week routine visit. DISCHARGE CONDITION: Stable. TIME SPENT ON DISCHARGE: Greater than 15 minutes. Vital Signs/I&Os Vital Signs Date Time Temp Pulse Resp B/P (MAP) Pulse Ox O2 Delivery O2 Flow Rate FiO2 06/01/20 06:00 97.2 72 18 110/59 (76) 05/31/20 17:40 97 Room Air Discharge Medications Scheduled No122/Iron/Folic Acid ( Multi Tablet) 1 Each Tablet, 1 TAB PO DAILY, (Reported) Scheduled PRN Calcium Carbonate (Tums) 300 Mg Tab.chew, 750 MG PO Q6HP PRN for HEARTBURN, (Reported) Allergies Coded Allergies: No Known Allergies (Unverified , 10/17/17) OPHELIA HUERTA CNM Jun 01, 2020 07:39
[2020-06-01] MEDS: PRENATAL VITAMINS CHEWABLE TABLET PO SCH (08:07)
[2020-06-01 08:11] VITALS: BP 119/66
[2020-06-01] MEDS ORDERED: ACET-683 PO (10:14)
[2020-06-01] MEDS ORDERED: IBUP80TA PO (10:14)
== END 2020-06-01 12:25 | disposition home or self-care (01) | DRG 560 ==
LOC: M LDI 19:20 → M OBS 05-30 09:50
PROVIDERS: ADMIT Obstetrics & Gynecology; ATTEND Obstetrics & Gynecology
PROC: 3E0DXGC Introduction of Other Therapeutic Substance into Mouth and Pharynx, External Approach (ICD-10-PCS; 2020-05-29)
PROC: 10E0XZZ Delivery of Products of Conception, External Approach (ICD-10-PCS; principal; 2020-05-30)
PROC: 0HQ9XZZ Repair Perineum Skin, External Approach (ICD-10-PCS; 2020-05-30)
DX: O36.8130 Decreased fetal movements, third trimester, not applicable or unspecified (principal); O48.0 Post-term pregnancy; Z37.0 Single live birth; Z3A.40 40 weeks gestation of pregnancy; O70.0 First degree perineal laceration during delivery

== ENCOUNTER 2021-02-01 05:34 | Emergency (ER) | payer OTHER ==
[~2021-02-01] VITALS: Ht 172.7 cm; Wt 62.5 kg
[~2021-02-01 05:34] MED LIST changes: +ACET-683 PO; +IBUP80TA PO
[2021-02-01 05:35] VITALS: BP 124/82
== END 2021-02-01 07:11 | disposition left against medical advice (07) ==
LOC: M ED 05:34
DX: Z53.21 Procedure and treatment not carried out due to patient leaving prior to being seen by health care provider (principal)

== ENCOUNTER → 2023-05-29 | Outpatient (CLI) | payer OTHER | LOC: M RAD 15:26 | PROVIDERS: ATTEND Physician Assistant Medical | DX: R05.9 Cough, unspecified (principal); R50.9 Fever, unspecified; J18.9 Pneumonia, unspecified organism ==